=== PATIENT | female | born 1985 | race Caucasian/White ===

== ENCOUNTER 2020-02-25 15:14 | Emergency (ER) | payer OTHER ==
[~2020-02-25] VITALS: Ht 167.6 cm; Wt 107.4 kg
--- NOTE | 2020-02-25 15:44 | NUR ---
PT C/O HUMPHREY AND EXPRESSIVE APHASIA THAT BEGAN ABOUT 2 HOURS AGO BUT HAS SINCE RESOLVED EXCEPT FOR RESIDUAL HUMPHREY. PT ALSO REPORT BLURRY VISION THAT HAS ALSO RESOLVED. CHART UP FOR MD. WAITING FOR ORDERS.
[2020-02-25] MEDS ORDERED: METOCLOPRAMIDE 5 MG/ML, 2ML IVPush ONE (16:30)
[2020-02-25] MEDS ORDERED: DIPHENHYDRAMINE 50 MG/ML, 1ML IVPush ONE (16:30)
[2020-02-25] MEDS ORDERED: SODIUM CHLORIDE FLUSH 10ML SYR IVF ONE (16:30)
[2020-02-25] MEDS ORDERED: DIPHENHYDRAMINE 50 MG/ML, 1ML ONE (16:36)
[2020-02-25] MEDS ORDERED: METOCLOPRAMIDE 5 MG/ML, 2ML ONE (16:36)
[2020-02-25 16:39] LABS: BASOPHILS # (AUTO) 0.04 x10^3/uL (0-0.1); BASOPHILS % (AUTO) 0 % (0-1); EOSINOPHILS # (AUTO) 0.09 x10^3/uL (0-0.4); EOSINOPHILS % (AUTO) 1 % (1-7); LYMPHOCYTES # (AUTO) 1.64 x10^3/uL (1-3.4); LYMPHOCYTES % (AUTO) 15 % (22-44); MD NO; MEAN CORPUSCULAR HEMOGLOBIN 30.6 pg (27.0-34.8); MEAN CORPUSCULAR HGB CONC 33.6 g/dL (32.4-35.8); MEAN CORPUSCULAR VOLUME 91.2 fL (80-100); MEAN PLATELET VOLUME 7.3 fL (7.4-10.4); MONOCYTES # (AUTO) 0.52 x10^3/uL (0.2-0.8); MONOCYTES % (AUTO) 5 % (2-9); NEUTROPHILS # (AUTO) 8.76 x10^3/uL (1.8-6.8); NEUTROPHILS % (AUTO) 79 % (42-75); PLATELET COUNT 306 x10^3/uL (130-400); RED BLOOD COUNT 4.77 x10^6/uL (3.82-5.3)
[2020-02-25 16:41] LABS: ALBUMIN 3.8 g/dL (3.4-5.0); ANION GAP 5 mmol/L (5-15); CALCIUM 9.2 mg/dL (8.5-10.1); CHLORIDE 111 mmol/L (98-107); CREATININE 0.91 mg/dL (0.55-1.02)
--- NOTE | 2020-02-25 16:41 | NUR ---
PT IN CT.
[2020-02-25 16:45] LABS: INTERNATIONAL NORMALIZED RATIO 0.96 (0.93-1.1); PROTHROMBIN TIME 9.9 Seconds (9.6-11.5)
--- NOTE | 2020-02-25 17:26 | NUR ---
pt sts feels better, chart up for recheck. as
[2020-02-25 18:18] VITALS: BP 125/74
== END 2020-02-25 18:21 | disposition home or self-care (01) ==
LOC: ED 18:15
DX: G43.B1 Ophthalmoplegic migraine, intractable (principal); H53.9 Unspecified visual disturbance; R47.9 Unspecified speech disturbances; R74.9 Abnormal serum enzyme level, unspecified
CPT/HCPCS: 36415; 70450; 80048; 82040; 85025; 85610; 85730; 93005; 96374; 96375; 99285; J1200; J2765